=== PATIENT | female | born 1955 | race Caucasian/White ===

== ENCOUNTER → 2016-08-20 | Outpatient (CLI) | payer BC ==
[~2016-08-20] MED LIST: ATEN50TA8 PO; ATOR-22 PO; ERGO1CAP35 PO; ESCI1TAB10 PO; GLC/500 PO; LORA-741 PO; [UNRECOGNIZED DRUG - CODE] PO
== END | disposition home or self-care (01) ==
LOC: C.RDSM 07:30
PROVIDERS: ATTEND Physical Medicine & Rehabilitation Sports Medicine
DX: M17.11 Unilateral primary osteoarthritis, right knee (principal)

== ENCOUNTER → 2016-09-24 | Outpatient (CLI) | payer BC ==
--- NOTE | 2016-09-24 16:26 | MAMMOGRAPHY REPORT ---
BILATERAL DIGITAL SCREENING MAMMOGRAM TOMOSYNTHESIS WITH CAD: 09/24/2016 CLINICAL HISTORY: Routine screening. Patient has no complaints. TECHNIQUE: Breast tomosynthesis in addition to standard 2D mammography was performed. Current study was also evaluated with a Computer Aided Detection (CAD) system. COMPARISON: Comparison is made to exams dated: 09/21/2015 mammogram, 11/24/2013 mammogram, 09/03/2012 mammogram, 06/20/2010 mammogram, and 06/16/2009 mammogram - [facility]. BREAST COMPOSITION: The tissue of both breasts is heterogeneously dense, which may obscure small ma sses. FINDINGS: No suspicious masses, calcifications, or areas of architectural distortion are noted in e ither breast. There has been no significant interval change compared to prior exams. Scattered bilat eral benign-appearing calcifications are not significantly changed. IMPRESSION: ACR BI-RADS CATEGORY 2: BENIGN There is no mammographic evidence of malignancy. A 1 year screening mammogram is recommended. The p atient will receive written notification of the results. Approximately 10% of breast cancers are not detected with mammography. A negative mammographic repor t should not delay biopsy if a clinically suggestive mass is present. Cheyanne Jolly M.D. /:09/24/2016 14:22:01 Vessel Scrapper Helper: Fabiola Matamoros, [facility] letter sent: Normal 1/2 BI-RADS Code: ACR BI-RADS Category 2: Benign
== END | disposition home or self-care (01) ==
LOC: C.MAMM 13:28
PROVIDERS: ATTEND Obstetrics & Gynecology
DX: Z12.31 Encounter for screening mammogram for malignant neoplasm of breast (principal)

== ENCOUNTER → 2016-12-10 | Outpatient (CLI) | payer BC ==
[2016-12-10 09:42] LABS: BASO % 0.5 %; BASO ABS # 0.02 K/uL (0-0.2); COMPLETE YES; EOS % 2.9 %; HEMATOCRIT 39.5 % (37-47); IG% 0.3 %; LYMPH % 42.8 %; LYMPH ABS # 1.63 K/uL (1.2-3.4); MEAN CELL VOLUME 87.4 fL (80-100); MEAN CORPUSCULAR HEMOGLOBIN 30.1 pg (25-34); MEAN CORPUSCULAR HGB CONC 34.4 g/dl (32-36); MONO % 8.7 %; NEUT % 44.8 %; PLATELET COUNT 255 K/uL (130-400); RED BLOOD COUNT 4.52 M/uL (4.2-5.4); WHITE BLOOD COUNT 3.81 K/uL (4.8-10.8)
[2016-12-10 10:01] LABS: ALT/SGPT 39 U/L (12-78); AST/SGOT 28 U/L (15-37); BLOOD UREA NITROGEN 8 mg/dl (7-18); BUN/CREATININE RATIO 14.8 (10-20); CALCIUM 9.5 mg/dl (8.5-10.1); CARBON DIOXIDE 27 mmol/L (21-32); CHLORIDE 100 mmol/L (98-107); CHOLESTEROL 147 mg/dl (0-200); CREATININE 0.56 mg/dl (0.60-1.20); GLUCOSE 84 mg/dl (70-99); POTASSIUM 4.1 mmol/L (3.5-5.1); SODIUM 135 mmol/L (136-145); TRIGLYCERIDES 57 mg/dl (0-150); VERY LOW DENSITY LIPOPROT CALC 11 mg/dl
[2016-12-10 10:02] LABS: ALB/GLOB RATIO 1.5 (0.9-2); ALKALINE PHOSPHATASE 74 U/L (45-117); CHOLESTEROL/HDL RATIO 2.4; HDL CHOLESTEROL 62 mg/dl; LDL CHOLESTEROL CALCULATED 74 mg/dl
== END | disposition home or self-care (01) ==
LOC: C.LAB1850 08:17
PROVIDERS: ATTEND Nurse Practitioner Family
DX: M85.80 Other specified disorders of bone density and structure, unspecified site (principal); E78.5 Hyperlipidemia, unspecified; E55.9 Vitamin D deficiency, unspecified; I10 Essential (primary) hypertension

== ENCOUNTER → 2017-06-19 | Outpatient (CLI) | payer BC ==
--- NOTE | 2017-06-19 15:52 | DIAGNOSTIC IMAGING REPORT ---
CHEST 2 VIEWS ROUTINE CLINICAL HISTORY: R05 Cough dyspnea COMPARISON STUDY: No previous studies for comparison. FINDINGS: The bones soft tissues and hemidiaphragms are normal. The cardiomediastinal silhouette is normal. The lungs are clear. The pulmonary vasculature is normal. IMPRESSION: Negative chest. The above report was generated using voice recognition software. It may contain grammatical, syntax or spelling errors. Electronically signed by: Kee Colunga M.D. 06/19/2017 3:51 PM Dictated Date/Time: 06/19/2017 3:50 PM
== END | disposition home or self-care (01) ==
LOC: C.RAD 15:28
PROVIDERS: ATTEND Nurse Practitioner Family
DX: R05 Cough (principal)

== ENCOUNTER → 2017-09-19 | Outpatient (CLI) | payer OTHER | END | disposition home or self-care (01) | LOC: C.PAPS 12:34 | PROVIDERS: ATTEND Physician Assistant | DX: Z01.419 Encounter for gynecological examination (general) (routine) without abnormal findings (principal); Z11.51 Encounter for screening for human papillomavirus (HPV); Z78.0 Asymptomatic menopausal state ==

== ENCOUNTER → 2017-10-14 | Outpatient (CLI) | payer OTHER ==
--- NOTE | 2017-10-14 15:40 | MAMMOGRAPHY REPORT ---
BILATERAL DIGITAL SCREENING MAMMOGRAM TOMOSYNTHESIS WITH CAD: 10/14/2017 CLINICAL HISTORY: Routine screening. TECHNIQUE: Breast tomosynthesis in addition to standard 2D mammography was performed. Current study was also evaluated with a Computer Aided Detection (CAD) system. COMPARISON: Comparison is made to exams dated: 09/24/2016 mammogram, 09/21/2015 mammogram, 11/24/2013 m ammogram, 09/03/2012 mammogram, 06/28/2011 mammogram, and 06/20/2010 mammogram - [facility]. BREAST COMPOSITION: The tissue of both breasts is heterogeneously dense, which may obscure small mas ses. FINDINGS: There are possible faint grouped microcalcifications in the upper outer middle one third o f the right breast for which additional spot magnification views are recommended. A small, 5 mm nodu lar asymmetry in the lateral posterior left breast on the CC view partially effaces on the tomosynthe sis images and could represent normal overlapping tissue although additional spot compression tomosyn thesis views and possible ultrasound are recommended. There are a few other scattered rounded coarse calcifications in the breasts. No other suspicious ma ss, architectural distortion or cluster of microcalcifications is seen. IMPRESSION: ACR BI-RADS CATEGORY 0: INCOMPLETE EVALUATION: NEED ADDITIONAL IMAGING EVALUATION The possible faint grouped microcalcifications in the right upper outer breast and 5 mm nodular asymm etry in the lateral, posterior left breast need additional imaging evaluation. The patient will be called to schedule an appointment. Approximately 10% of breast cancers are not detected with mammography. A negative mammographic report should not delay biopsy if a clinically suggestive mass is present. Analy Sorto M.D. ay/:10/14/2017 07:53:47 Desktop Support Manager: Jeronimo MARCOS(Masoud)(M), [facility] letter sent: Addl Imaging 0 BI-RADS Code: ACR BI-RADS Category 0: Incomplete Evaluation: Need Additional Imaging Evaluation
== END | disposition home or self-care (01) ==
LOC: C.MAMM 07:19
PROVIDERS: ATTEND Nurse Practitioner Family
DX: Z12.31 Encounter for screening mammogram for malignant neoplasm of breast (principal); R92.0 Mammographic microcalcification found on diagnostic imaging of breast

== ENCOUNTER → 2017-10-17 | Outpatient (CLI) | payer OTHER | END | disposition home or self-care (01) | LOC: C.PATHSPEC 14:13 | PROVIDERS: ATTEND Obstetrics & Gynecology | DX: N90.4 Leukoplakia of vulva (principal) ==

== ENCOUNTER → 2017-11-04 | Outpatient (CLI) | payer OTHER ==
--- NOTE | 2017-11-05 13:04 | MAMMOGRAPHY REPORT ---
BILATERAL DIGITAL DIAGNOSTIC MAMMOGRAM TOMOSYNTHESIS AND TARGETED RIGHT ULTRASOUND: 11/04/2017 CLINICAL HISTORY: 62-year-old woman called back from screening mammography for a 5 mm nodular asymmet ry in the lateral, posterior left breast and possible faint microcalcifications in the right breast. TECHNIQUE: Spot magnification right CC, ML; spot compression tomosynthesis left CC and MLO views were obtained. COMPARISON: Comparison is made to exams dated: 10/14/2017 mammogram, 09/24/2016 mammogram, 09/21/2015 ma mmogram, 11/24/2013 mammogram, 09/10/2012 mammogram, and 09/03/2012 mammogram - [facility]. BREAST COMPOSITION: The tissue of both breasts is heterogeneously dense, which may obscure small mas ses. FINDINGS: The spot compression tomosynthesis views of the left breast demonstrate effacement of the nodular asymmetry in the lateral, posterior aspect of the breast. There is no definite persistent ma ss, focal area of architectural distortion or asymmetry identified on the CC or MLO views. Neverthel ess, given the conspicuous nature on screening mammography, further evaluation with ultrasound was pe rformed. Spot magnification views of the right breast demonstrate 2 benign rim calcifications. There is a pos sible 2 mm grouping of faint punctate and amorphous microcalcifications in the lateral, middle one th ird of the breast in the CC projection. However, when assessing the spot magnification ML view there are possible multiple clusters of faint punctate and amorphous microcalcifications suggesting the ca lcifications represent benign fibrocystic change. Also, when comparing back to prior available mammo grams, these microcalcifications were likely present dating back to at least 2012, therefore likely b enign. Targeted ultrasound was performed in the lateral and superior left breast. In the 3:00 left breast, 3 cm from the nipple, there is a subtle isoechoic solid-appearing, partially circumscribed mass, jamila uring 4.9 x 4.5 x 6.1 mm. This is likely incidentally identified but given the solid nature it is in determinate and definitive characterization with an ultrasound-guided core biopsy is recommended. No other discrete solid or cystic mass identified in the superior or lateral left breast. IMPRESSION: ACR BI-RADS CATEGORY 4: SUSPICIOUS, TARGETED ULTRASOUND ACR BI-RADS CATEGORY 4: SUSPICIO US 1. Left breast ultrasound-guided core biopsy is recommended for an incidentally identified indetermi casandra 6 mm isoechoic mass in the 3:00 axis, 3 cm from the nipple. 2. Pending benign pathology results from the left breast biopsy, follow-up right diagnostic mammogra ms including spot magnification views and follow-up left diagnostic mammograms including tomosynthesi s images are recommended for probably benign faint punctate microcalcifications in the right lateral breast and and effacing nodular asymmetry without definite sonographic correlate in the lateral, post erior left breast. These results and recommendations were discussed with the patient at the time of the exam. She tenta tively scheduled a left breast biopsy and six-month follow-up appointment prior to leaving our depart ment. Approximately 10% of breast cancers are not detected with mammography. A negative mammographic report should not delay biopsy if a clinically suggestive mass is present. Analy Sorto M.D. ay/:11/04/2017 14:11:36 Alemite Operator: Francisca LOVE)(Sadia), [facility] letter sent: Abnormal 4/5 BI-RADS Code: ACR BI-RADS Category 4: Suspicious Ultrasound BI-RADS: ACR BI-RADS Category 4: Suspici ous
== END | disposition home or self-care (01) ==
LOC: C.MAMM 09:29
PROVIDERS: ATTEND Nurse Practitioner Family
DX: R92.0 Mammographic microcalcification found on diagnostic imaging of breast (principal); N64.89 Other specified disorders of breast

== ENCOUNTER → 2017-11-14 | Outpatient (CLI) | payer OTHER ==
--- NOTE | 2017-11-14 11:03 | Discharge Instructions ---
Discharge Instructions Procedure Procedure Date: Nov 14, 2017. Reason for visit: Left Mass. Discharge Discharge Date: Nov 14, 2017. Discharge Diagnosis: status post breast biopsy Instructions Activity Recommendations: Additional Limitations (see below) Return to School/Work: no limitations Recommended Home Diet: No Limitations Provider Instructions: ACTIVITY RECOMMENDATIONS: * No lifting, pushing, pulling or exercising the affected side for three days. RETURN TO SCHOOL/WORK: * You may return to work/school after the procedure, but do not perform any strenuous activities for 24 to 48 hours. MEDICATIONS: * Tylenol (two 325 mg) every four to six hours if needed for mild pain (if not allergic to Tylenol). DIET: * Resume previous diet. SPECIAL CARE INSTRUCTIONS: * Keep biopsy site dry for 24 hours. May shower after 24 hours, but do not soak (bathe) incision. * May remove Tegaderm (plastic patch) tomorrow AFTER showering. * Leave the steri-strips on for one week. Allow the steri-strips to fall off by themselves. If not off after one week, you may remove them. You may place a Bandaid crosswise over the strips, if desired. * Apply ice 10 minutes on and 10 minutes off as needed. * Wear a bra at bedtime to sleep more comfortably for 2-3 days. * Your referring physician should have the results after approximately 5 to 7 business days. * Call for unusual bleeding, fever, drainage, etc or if you have any questions call during normal business hours or after hours call Dr Jolly, [phone]. FOLLOW UP VISIT: Follow-up with Referring Physician as scheduled. Allergies Coded Allergies: Pravastatin (Unverified Allergy, Intermediate, RASH, 01/13/14) Yodit Pisanoy Recommendations: Call your doctor if: * Temperature above 101 degrees * Pain not relieved by pain medicine ordered * There is increased drainage or redness from any incision * You have any unanswered questions or concerns. Your Doctors Instructions noted above were prepared by provider Cheyanne Jolly. Patient Signature Section: Patient Instructions Signature Page Lorena Bradshaw Patient (or Guardian) Signature/Date: I have read and understand the instructions given to me by my caregivers. Caregiver/RN/Doctor Signature/Date: The above-named patient and/or guardian has received patient instructions on this date. + Original Patient Signature Page (only) stays with chart. Please make copy for patient.
--- NOTE | 2017-11-14 14:44 | MAMMOGRAPHY REPORT ---
ULTRASOUND GUIDED BIOPSY LEFT BREAST: 11/14/2017 CLINICAL HISTORY: Left 3:00 breast mass. PATIENT CONSENT: The procedure, risks and benefits were discussed with the patient and informed writt en consent was obtained. A timeout was performed immediately prior to the procedure. PROCEDURE DESCRIPTION: With ultrasound guidance, aseptic technique, and lidocaine as the local anesth etic (1% lidocaine to anesthetize the skin and 1% lidocaine with epinephrine to anesthetize the deepe r tissues), the mass of concern in the left 3:00 breast was sampled 4 times with a 14-gauge Achieve b iopsy needle. Immediately thereafter, with ultrasound guidance, aseptic technique, and lidocaine as the local anesthetic, a metallic localizer clip was placed centrally in the mass. Direct pressure wa s applied to the site immediately post procedure and hemostasis was achieved. Postprocedure unilater al mammograms were performed to confirm placement of the clip in the expected location of the breast mass. The patient tolerated the procedure without complication. She was given wound care instructio ns. The specimens were sent to pathology for analysis. COMPARISON: Comparison is made to exams dated: 11/04/2017 mammogram, 11/04/2017 ultrasound, 10/14/2017 m ammogram, 09/24/2016 mammogram, 09/21/2015 mammogram, and 11/24/2013 mammogram - [facility] enter. IMPRESSION: ULTRASOUND GUIDED BIOPSY Ultrasound-guided core needle biopsy of the left 3:00 breast mass, with clip placement. The patient will receive pathology results from her referring provider. Pending benign pathology results, recomm end follow-up bilateral diagnostic mammograms in 6 months to reevaluate other bilateral breast findin gs as described on the prior diagnostic report. Cheyanne Jolly M.D. /:11/14/2017 11:05:52 Actuarial Consultant: Fabiola MARCOS(R)(M), [facility]
--- NOTE | 2017-11-14 14:44 | MAMMOGRAPHY REPORT ---
UNILATERAL LEFT DIGITAL DIAGNOSTIC MAMMOGRAM TOMOSYNTHESIS: 11/14/2017 CLINICAL HISTORY: Status post left breast biopsy. TECHNIQUE: Breast tomosynthesis in addition to standard 2D mammography was performed. Postprocedura l left CC and ML tomosynthesis images were obtained. COMPARISON: Comparison is made to exams dated: 11/04/2017 ultrasound, 10/14/2017 mammogram, 09/24/2016 m ammogram, 09/21/2015 mammogram, and 11/24/2013 mammogram - [facility]. BREAST COMPOSITION: The tissue of the left breast is heterogeneously dense, which may obscure small masses. FINDINGS: A new ribbon-shaped biopsy marker clip is seen in the expected location of the biopsied lef t 3:00 breast mass. No significant postbiopsy hematoma is seen. IMPRESSION: POST PROCEDURE IMAGING FOR MARKER PLACEMENT New biopsy marker clip status post left breast biopsy. Pathology results are pending. Approximately 10% of breast cancers are not detected with mammography. A negative mammographic report should not delay biopsy if a clinically suggestive mass is present. Cheyanne Jolly M.D. ah/:11/14/2017 11:14:20 Community Arts Worker: Fabiola Resendzi RT(R)(M), [facility] BI-RADS Code: Post Procedure Imaging For Marker Placement
== END | disposition home or self-care (01) ==
LOC: C.MAMM 10:36
PROVIDERS: ATTEND Nurse Practitioner Family
DX: R92.8 Other abnormal and inconclusive findings on diagnostic imaging of breast (principal); N63.20 Unspecified lump in the left breast, unspecified quadrant; D24.2 Benign neoplasm of left breast

== ENCOUNTER → 2017-12-17 | Outpatient (CLI) | payer OTHER ==
[2017-12-17 10:15] LABS: BASO % 1.1 %; BASO ABS # 0.05 K/uL (0-0.2); EOS % 6.2 %; EOS ABS # 0.28 K/uL (0-0.5); HEMATOCRIT 38.8 % (37-47); IG# 0.01 K/uL (0.00-0.02); LYMPH % 37.8 %; LYMPH ABS # 1.71 K/uL (1.2-3.4); MEAN CELL VOLUME 87.4 fL (80-100); MEAN CORPUSCULAR HEMOGLOBIN 29.3 pg (25-34); MEAN CORPUSCULAR HGB CONC 33.5 g/dl (32-36); MEAN PLATELET VOLUME 9.2 fL (7.4-10.4); MONO % 9.3 %; MONO ABS # 0.42 K/uL (0.11-0.59); NEUT % 45.4 %; NEUT ABS # 2.05 K/uL (1.4-6.5); PLATELET COUNT 276 K/uL (130-400); RED CELL DISTRIBUTION WIDTH CV 12.8 % (11.5-14.5); RED CELL DISTRIBUTION WIDTH SD 41.5 fL (36.4-46.3); WHITE BLOOD COUNT 4.52 K/uL (4.8-10.8)
[2017-12-17 10:32] LABS: ALBUMIN 3.8 gm/dl (3.4-5.0); ALT/SGPT 41 U/L (12-78); AST/SGOT 26 U/L (15-37); BLOOD UREA NITROGEN 11 mg/dl (7-18); CALCIUM 8.8 mg/dl (8.5-10.1); CARBON DIOXIDE 30 mmol/L (21-32); CHOLESTEROL 157 mg/dl (0-200); CREATININE 0.59 mg/dl (0.60-1.20); GLUCOSE 91 mg/dl (70-99); POTASSIUM 4.3 mmol/L (3.5-5.1); SODIUM 136 mmol/L (136-145)
[2017-12-17 10:33] LABS: ALKALINE PHOSPHATASE 77 U/L (45-117); LDL CHOLESTEROL CALCULATED 83 mg/dl
== END | disposition home or self-care (01) ==
LOC: C.LAB1850 09:01
PROVIDERS: ATTEND Nurse Practitioner Family
DX: E78.5 Hyperlipidemia, unspecified (principal); E88.9 Metabolic disorder, unspecified; I10 Essential (primary) hypertension; E55.9 Vitamin D deficiency, unspecified

== ENCOUNTER 2022-10-02 09:40 | Inpatient (IN) ==
--- NOTE | 2022-10-02 10:46 | XRay Report ---
XR chest 1V portable HISTORY: Chest pain, nonspecific COMPARISON: None. FINDINGS: The cardiac silhouette is mildly enlarged. There are trace bilateral pleural effusions. The re is diffuse interstitial/vascular thickening consistent with mild pulmonary edema. No focal lung co nsolidations identified. IMPRESSION: Cardiomegaly with mild interstitial pulmonary edema and trace bilateral pleural effusions. ACT 112: Negative or not required by law. Electronically signed by: Guero Peralta M.D. 10/02/2022 10:44 AM
[2022-10-02] MEDS ORDERED: FUROSEMIDE 40 MG/4 ML VIAL IV ONE (11:09)
[2022-10-02] MEDS ORDERED: hydrALAZINE HCL 20 MG/ML VIAL IV ONE (11:14)
[2022-10-02 11:20] LABS: Basophils # (auto) 0.04 K/uL (0-0.2); Basophils % (auto) 0.6 %; Eosinophils # (auto) 0.08 K/uL (0-0.50); Eosinophils % (auto) 1.3 %; Hematocrit (blood only) 32.4 % (37.0-47.0); Hemoglobin 10.9 g/dl (12.0-16.0); Immature Granulocytes # (auto) 0.02 K/uL (0.01-0.20); Immature Granulocytes % (auto) 0.3 %; Lymphocytes # (auto) 1.23 K/uL (1.2-3.4); Lymphocytes % (auto) 19.4 %; Mean Corpuscular Hemoglobin 29.1 pg (25.0-34.0); Mean Corpuscular Hgb Conc 33.6 g/dL (32.0-36.0); Mean Corpuscular Volume 86.6 fL (80.0-100.0); Mean Platelet Volume 9.6 fL (9.4-12.4); Monocytes # (auto) 0.61 K/uL (0.11-0.59); Monocytes % (auto) 9.6 %; Neutrophils # (auto) 4.35 K/uL (1.40-6.50); Neutrophils % (auto) 68.8 %; Platelet Count 270 K/uL (130-400); RDW Coefficient of Variation 13.2 % (11.5-14.5); RDW Standard Deviation 41.5 fL (36.4-46.3); Red Blood Count 3.74 M/uL (4.20-5.40); White Blood Count 6.33 K/ul (4.8-10.8)
[2022-10-02 11:39] LABS: Albumin Globulin Ratio 1.4 (0.9-2); Albumin Level 3.8 gm/dl (3.4-5.0); Bilirubin,Total 1.2 mg/dl (0.2-1.0); Creatinine Clr Calc Pharmacy 108.1 ml/min; Est GFR (African American) 115.3 ml/min; Est GFR (Non-African American) 99.4 ml/min; Globulin 2.7 gm/dl (2.5-4.0); Potassium 3.6 mmol/L (3.5-5.1); Total Protein 6.5 gm/dl (6.0-8.3)
[2022-10-02 11:45] LABS: Troponin I High Sensitivity 23.1 pg/ml (0-14)
--- NOTE | 2022-10-02 13:41 | History & Physical Report ---
Date of Service October 02, 2022 Assessment & Plan (1) Hypertensive emergency: Plan: Presented to the ER after evaluation at her PCP office with blood pressures in the [id number] systolic, with complaints of headache and exertional chest pain/dyspnea x1 week. High-sensitivity troponin of 20, EKG without any obvious ST or T wave abnormalities suggestive of ACS. Chest pain resolved by time of my interview. Continue to monitor with every 6 hours troponins and stress test in the morning. Will give amlodipine 5 mg p.o. x1 now, and continue amlodipine 5 mg daily starting tomorrow. No neurologic findings on time of interview that would suggest need for brain imaging. Lopressor 5mg IV q6h as needed for SBP >180. (2) Chest pain: Plan: In the setting of severe hypertension, and patient does have several risk factors for CAD. Stress test tomorrow as above. Trend troponins every 6 hours. No evidence of ACS. Continue daily baby aspirin. (3) Shortness of breath: Plan: On exertion over the last week or so, with chest x-ray suggesting mild pulmonary edema and small bilateral pleural effusions. Symptoms resolved after receiving Lasix 40 mg IV x1 in the ER. Cardiac evaluation as described above. (4) Pulmonary edema: Plan: See shortness of breath. (5) Transaminitis: Plan: Noted on admission labwork to have elevated T Bili to 1.2 with mildly elevated AST/ALT/Alk Phos. Patient denies RUQ pain. RUQ US ordered given acute transaminitis (last labwork normal 5 days ago). (6) Hyperlipidemia: Plan: History of, on atorvastatin 20 mg daily. Lipid panel ordered. (7) Prediabetes: Plan: A1c 5.9% in March 2022. Patient takes metformin 500mg BID. Repeat A1c ordered. (8) Depression: Plan: Continue home Lexapro. Plan Heparin SQ BID for DVT ppx FULL CODE Heart healthy diet History of Present Illness Chief Complaint: Exertional chest pain and shortness of breath, elevated LFTs Primary Care Provider: Meño Lawson, III, GLASS BLOWING LATHE OPERATOR 67-year-old female past medical history significant for hypertension, hyperlipidemia, depression, prediabetes presented to the ER via personal vehicle at the urging of her primary care provider after her wellness visit today. During that visit she endorsed exertional chest heaviness and associated shortness of breath (example that she gives was when she went to [employer] over the weekend walking up the steps made her very winded and with a bit of a pressure sensation over her chest, improved upon sitting at [employer] and did not have for the rest of the day), though she does endorse that symptoms are sometimes present at rest, though not as severe. She also endorses a severe headache for the last week, which she thought was due to needing new glasses. She denies recent fevers, nausea, lightheadedness. She does not endorse any abdominal pain, and denies any improvement or worsening of the pressure/pain sensation with eating. In the ER patient was noted to have a hemoglobin of 10.9, normal WBC count, normal BMP, elevated LFTs and T. bili compared to lab work on 09/27/2022, and elevated troponin to 23.1. COVID-19 negative. Chest x-ray with some evidence of mild interstitial pulmonary edema and trace bilateral pleural effusions. EKG with T wave inversions in leads V1 and V2, otherwise no ST or T wave changes. Patient was given hydralazine 5 mg IV and furosemide 40 mg IV, and gallbladder ultrasound was ordered. Hospitalist service was consulted for possible unstable angina, hypertensive urgency, and further evaluation of transaminitis. Allergies Allergy/AdvReac Type Severity Reaction Status Date / Time pravastatin Allergy Intermediate RASH Verified 10/02/22 08:43 Home Medications Medication Instructions Recorded Confirmed Type calcium carbonate 600 mg calcium 600 mg PO DAILY 09/23/19 10/02/22 History (1,500 mg) tablet cholecalciferol (vitamin D3) 50 50 mcg PO DAILY 09/23/19 10/02/22 History mcg (2,000 unit) tablet mecobalamin (vitamin B12) 1,000 1,000 mcg PO DIRECTED 09/23/19 10/02/22 History mcg chewable tablet clotrimazole-betamethasone 1 1 applic topical BID PRN Skin 09/28/21 10/02/22 History %-0.05 % topical cream Irritation atorvastatin 20 mg tablet 20 mg PO DAILY #90 tabs 04/13/22 10/02/22 Rx losartan 25 mg tablet 25 mg PO BID #180 tabs 06/07/22 10/02/22 Rx atenolol 50 mg tablet 50 mg PO DAILY #90 tabs 08/27/22 10/02/22 Rx escitalopram oxalate 20 mg tablet 20 mg PO DAILY #90 tabs 08/27/22 10/02/22 Rx metformin 500 mg tablet 500 mg PO BID #180 tabs 09/10/22 10/02/22 Rx aspirin 81 mg tablet,delayed 81 mg PO DAILY 10/02/22 10/02/22 History release (Adult Low Dose Aspirin) Past Med/Surg History Medical History Benign essential hypertension Depression Hyperlipidemia Metabolic disorder Osteopenia after menopause Prediabetes Vitamin D deficiency Surgical History History of breast biopsy History of colonoscopy S/P appendectomy S/P excision of ganglion cyst Family History Mother Breast cancer Diabetes Dementia Macular degeneration Hyperlipidemia Hypertension Father Myocardial infarction Prostate cancer Coronary heart disease Hypertension Grandfather (Maternal) Colon cancer Denies family history of Ovarian cancer Social History Smoking Status: Never smoker Second Hand Exposure: No; Hx Alcohol Use: Yes Alcohol type: wine Alcohol Intake Frequency: Monthly or Less Hx Substance Use: No Preferred Language: Chinese Communication Ability: Effective Visual Impairment: No Limitations Hearing Ability: Normal Assisted Living Coordinator Required: No marital status: Single Current Living Situation: Alone current occupational status: retired Feels Safe at Home: Yes Childhood Exposure to Second-Hand Smoke: No Diet Comment: regular Dental Care, Regularly: Yes Physical Activity Frequency: Daily Seatbelt Use: always Sunscreen Use: Yes Assistive Devices: Glasses Review of Systems Review of Systems: All systems reviewed & are unremarkable except as noted in Subjective Physical Exam Constitutional: WD/WN, vitals as above Respiratory: normal respiratory effort, lungs clear to auscultation Cardiovascular: RRR, no murmur, no edema Gastrointestinal (Abdomen): normal bowel sounds, soft, nontender, no hepatosplenomegaly Skin: no rashes, warm and dry Psychiatric: A+Ox3, euthymic affect Results & Data Results & Data ([facility]) Vital Signs (Past 12 Hours) Vital Signs Temp Pulse Resp BP Pulse Ox O2 Del Method 10/02/22 13:22 68 26 H 96 10/02/22 13:10 59 L 17 96 10/02/22 13:00 57 L 21 10/02/22 13:00 194/87 H 10/02/22 12:40 59 L 21 96 10/02/22 12:37 57 L 18 10/02/22 12:37 180/87 H 10/02/22 12:20 58 L 17 95 10/02/22 12:00 66 28 H 95 10/02/22 12:00 195/85 H 10/02/22 11:50 60 21 97 10/02/22 11:40 60 22 96 10/02/22 11:30 57 L 20 10/02/22 11:30 174/88 H 10/02/22 11:20 57 L 21 95 10/02/22 11:10 59 L 20 98 10/02/22 11:00 56 L 17 10/02/22 11:00 176/89 H 10/02/22 10:50 55 L 16 97 10/02/22 10:30 58 L 22 188/93 H 96 Room Air 10/02/22 10:08 61 10/02/22 09:44 36.4 C L 84 18 198/94 H 91 Room Air PG Care Time/CCT Total # of Minutes Spent Total Time Spent with Patient: Total time spent is greater than 50% in coordination of care (as documented) at patient's floor/unit and/or counseling patient: Coding Level of Care Code 71936 INT INP/OBS CARE 3/75MIN Diagnoses Hypertensive emergency I16.1 Chest pain R07.9 Shortness of breath R06.02 Pulmonary edema J81.1 Transaminitis R74.01 Hyperlipidemia E78.5 Prediabetes R73.03 Depression F32.9
--- NOTE | 2022-10-02 13:58 | Electrocardiogram Report ---
Test Reason : Blood Pressure : / mmHG Vent. Rate : 062 BPM Atrial Rate : 062 BPM P-R Int : 128 ms QRS Dur : 084 ms QT Int : 414 ms P-R-T Axes : 013 024 021 degrees QTc Int : 420 ms Normal sinus rhythm Normal ECG No previous ECGs available Confirmed by Jose Manuel Juárez ([id number]) on 10/02/2022 1:58:16 PM Referred By: Meño Lawson Confirmed By:Antonio Juárez
[2022-10-02] MEDS ORDERED: amLODIPine BESYLATE 5 MG TAB PO ONE (14:09)
[2022-10-02] MEDS ORDERED: METOPROLOL TARTRATE 1 MG/ML VIAL IV PRN (14:24)
--- NOTE | 2022-10-02 14:51 | Ultrasound Report ---
ABDOMINAL ULTRASOUND, RIGHT UPPER QUADRANT HISTORY: elevated LFT. COMPARISON: Abdominal ultrasound 10/26/2009. FINDINGS: Pancreas: Obscured by overlying bowel gas. Liver: Unremarkable. The main portal vein is patent. Gallbladder: No gallbladder wall thickening. No gallstones. CBD: 3 mm. Right kidney: No hydronephrosis. IMPRESSION: 1. Normal liver and gallbladder. 2. The pancreas was obscured by overlying bowel gas. ACT 112: Negative or not required by law. Electronically signed by: Guero Peralta M.D. 10/02/2022 2:50 PM
--- NOTE | 2022-10-02 15:17 | Emergency Department Note ---
Impression & Plan Pulmonary edema, Chest pain, Transaminitis ED Provider Note CHIEF COMPLAINT: Chest pain, shortness of breath HISTORY OF PRESENT ILLNESS: This 67-year-old female patient presents to the emergency department with complaints of chest pain and shortness of breath for the last 2 days. Patient states she experienced fatigue and chest pressure when climbing the basement stairs doing laundry yesterday. She does feel winded when exerting herself. Patient denies any radiation of the pain to the jaw, arm and back. The patient had an appointment with her PCP today for a wellness checkup and was noted to have markedly elevated blood pressure, referred to the emergency department for evaluation. She did take her medications this morning. She denies any history of coronary artery disease. She denies any upper respiratory symptoms recently. REVIEW OF SYSTEMS: A review of systems was performed with positives and pertinent negatives listed in the history of present illness. 10 systems were reviewed and are otherwise negative. ALLERGIES: see below MEDICATIONS: see below PMH: see below SOCIAL HISTORY: see below DDx: Cardiac ischemia, aortic dissection, pulmonary embolism, pneumothorax, pneumonia, pericarditis, myocarditis, esophageal rupture, GERD, cholecystitis, pancreatitis, musculoskeletal, as well as other pathologies. PHYSICAL EXAM: Vital signs reviewed. General: Well-appearing 67-year-old female, in no significant distress. HEENT: No scleral icterus, PERRLA, neck supple. Moist mucous membranes Cardiovascular: Regular rate and rhythm, no extra sounds. Pulmonary: Clear to auscultation bilaterally, normal work of breathing. Abdomen: Soft, nontender, nondistended, positive bowel sounds. Musculoskeletal: Atraumatic, no peripheral edema. Neurologic: Patient awake alert and oriented x 3, speech is clear Skin: Warm, dry, no rash EMERGENCY DEPARTMENT COURSE/MDM: This patient was evaluated and appeared to be in no significant distress. IV access was obtained and laboratory work was drawn. The patient was placed on the engine monitor and noted to be in a normal sinus rhythm. EKG reveals no evidence of acute ischemia. Chest x-ray reveals evidence of pulmonary vascular congestion. Patient's HS troponin is just above normal at 23. Patient is noted to have a mild transaminitis and ultrasound of the right upper quadrant was performed. The study is negative for acute process. The patient was given 40 mg of IV Lasix and 5 mg of IV hydralazine. She did take aspirin prior to arrival. Patient had significant subjective improvement after she began to diurese. Given that this is a new diagnosis for the patient and she is experiencing chest discomfort/shortness of breath with exertion, patient was discussed with the hospitalist service for ad mission and further management. She is expressed understanding of the plan and agreed. MONITORING: An order for cardiac monitoring was placed and the patient is noted to be in a sinus bradycardia at 58 beats per minute. RADIOLOGY: Chest x-ray to my interpretation reveals evidence of pulmonary vas cular congestion, otherwise defer to radiology. Ultrasound of the gallbladder per radiology reveals normal gallbladder and liver. Pancreas is obscured by bowel gas. Please see formal read below. EKG: EKG to my interpretation reveals sinus bradycardia at 55 bpm. QTc of 474. Normal ST segments. No PVC, no PAC. When compared to previous of same day, QTc has lengthened. DISPOSITION: Admission Past Med/Surg History Medical History Benign essential hypertension Depression Hyperlipidemia Metabolic disorder Osteopenia after menopause Prediabetes Vitamin D deficiency Surgical History History of breast biopsy History of colonoscopy S/P appendectomy S/P excision of ganglion cyst Family History Mother Breast cancer Diabetes Dementia Macular degeneration Hyperlipidemia Hypertension Father Myocardial infarction Prostate cancer Coronary heart disease Hypertension Grandfather (Maternal) Colon cancer Denies family history of Ovarian cancer Social History Smoking Status: Never smoker Second Hand Exposure: No; Hx Alcohol Use: Yes Alcohol type: wine Alcohol Intake Frequency: Monthly or Less Hx Substance Use: No Preferred Language: Greenlandic Communication Ability: Effective Visual Impairment: No Limitations 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 Beliefs That Will Affect Care: Holiness marital status: Single Current Living Situation: Alone current occupational status: retired Feels Safe at Home: Yes Childhood Exposure to Second-Hand Smoke: No Diet Comment: regular Dental Care, Regularly: Yes Physical Activity Frequency: Daily Seatbelt Use: always Sunscreen Use: Yes Assistive Devices: None Allergies Allergies Allergy/AdvReac Type Severity Reaction Status Date / Time pravastatin Allergy Intermediate RASH Verified 10/05/22 10:03 Home Meds Home Medications Medication Instructions Recorded Confirmed calcium carbonate 600 mg calcium 600 mg PO DAILY 09/23/19 10/05/22 (1,500 mg) tablet cholecalciferol (vitamin D3) 50 50 mcg PO DAILY 09/23/19 10/05/22 mcg (2,000 unit) tablet mecobalamin (vitamin B12) 1,000 1,000 mcg PO DIRECTED 09/23/19 10/05/22 mcg chewable tablet clotrimazole-betamethasone 1 1 applic topical BID PRN Skin 09/28/21 10/05/22 %-0.05 % topical cream Irritation aspirin 81 mg tablet,delayed 81 mg PO DAILY 10/02/22 10/05/22 release (Adult Low Dose Aspirin) Previous Rx's Medication Instructions Recorded atorvastatin 20 mg tablet 20 mg PO DAILY #90 tabs 04/13/22 losartan 25 mg tablet 25 mg PO BID #180 tabs 06/07/22 atenolol 50 mg tablet 50 mg PO DAILY #90 tabs 08/27/22 escitalopram oxalate 20 mg tablet 20 mg PO DAILY #90 tabs 08/27/22 metformin 500 mg tablet 500 mg PO BID #180 tabs 09/10/22 amlodipine 10 mg tablet 10 mg PO DAILY #30 tabs 10/04/22 Results & Data (ED) Vital Signs Vital Signs - 24 hr 10/02/22 09:44 10/02/22 10:08 10/02/22 10:30 Temperature 36.4 C L Temperature Source Temporal Artery Scan Pulse Rate 84 61 58 L Pulse Rate from SpO2 Sensor Respiratory Rate 18 22 Blood Pressure 198/94 H 188/93 H Blood Pressure Mean 128 124 Blood Pressure Position Sitting Pulse Oximetry 91 96 Oxygen Delivery Method Room Air Room Air Sepsis Recent Fever Within 48 Hours No Sepsis New/Unexplained Change in Mental Status No Sepsis Action Taken by Nursing No Action Required 10/02/22 10:50 10/02/22 11:00 10/02/22 11:00 Temperature Temperature Source Pulse Rate 55 L 56 L Pulse Rate from SpO2 Sensor 56 L Respiratory Rate 16 17 Blood Pressure 176/89 H Blood Pressure Mean 118 Blood Pressure Position Pulse Oximetry 97 Oxygen Delivery Method Sepsis Recent Fever Within 48 Hours Sepsis New/Unexplained Change in Mental Status Sepsis Action Taken by Nursing 10/02/22 11:10 10/02/22 11:20 10/02/22 11:30 Temperature Temperature Source Pulse Rate 59 L 57 L Pulse Rate from SpO2 Sensor 58 L 58 L Respiratory Rate 20 21 Blood Pressure 174/88 H Blood Pressure Mean 116 Blood Pressure Position Pulse Oximetry 98 95 Oxygen Delivery Method Sepsis Recent Fever Within 48 Hours Sepsis New/Unexplained Change in Mental Status Sepsis Action Taken by Nursing 10/02/22 11:30 10/02/22 11:40 10/02/22 11:50 Temperature Temperature Source Pulse Rate 57 L 60 60 Pulse Rate from SpO2 Sensor 60 61 Respiratory Rate 20 22 21 Blood Pressure Blood Pressure Mean Blood Pressure Position Pulse Oximetry 96 97 Oxygen Delivery Method Sepsis Recent Fever Within 48 Hours Sepsis New/Unexplained Change in Mental Status Sepsis Action Taken by Nursing 10/02/22 12:00 10/02/22 12:00 10/02/22 12:20 Temperature Temperature Source Pulse Rate 66 58 L Pulse Rate from SpO2 Sensor 66 59 L Respiratory Rate 28 H 17 Blood Pressure 195/85 H Blood Pressure Mean 121 Blood Pressure Position Pulse Oximetry 95 95 Oxygen Delivery Method Sepsis Recent Fever Within 48 Hours Sepsis New/Unexplained Change in Mental Status Sepsis Action Taken by Nursing 10/02/22 12:37 10/02/22 12:37 10/02/22 12:40 Temperature Temperature Source Pulse Rate 57 L 59 L Pulse Rate from SpO2 Sensor 59 L Respiratory Rate 18 21 Blood Pressure 180/87 H Blood Pressure Mean 118 Blood Pressure Position Pulse Oximetry 96 Oxygen Delivery Method Sepsis Recent Fever Within 48 Hours Sepsis New/Unexplained Change in Mental Status Sepsis Action Taken by Nursing 10/02/22 13:00 10/02/22 13:00 10/02/22 13:10 Temperature Temperature Source Pulse Rate 57 L 59 L Pulse Rate from SpO2 Sensor 58 L Respiratory Rate 21 17 Blood Pressure 194/87 H Blood Pressure Mean 122 Blood Pressure Position Pulse Oximetry 96 Oxygen Delivery Method Sepsis Recent Fever Within 48 Hours Sepsis New/Unexplained Change in Mental Status Sepsis Action Taken by Nursing 10/02/22 13:22 Temperature Temperature Source Pulse Rate 68 Pulse Rate from SpO2 Sensor 68 Respiratory Rate 26 H Blood Pressure Blood Pressure Mean Blood Pressure Position Pulse Oximetry 96 Oxygen Delivery Method Sepsis Recent Fever Within 48 Hours Sepsis New/Unexplained Change in Mental Status Sepsis Action Taken by [facility] Medications Current Medication List: was personally reviewed by me Laboratory Data Attestation: I reviewed the patient's lab results. 10/02/22 10:04 10/02/22 10:04 Lab Results 02/10/02/22 10/02/22 Range/Units 10:02 10:04 10:04 WBC 6.33 (4.8-10.8) K/ul RBC 3.74 L (4.20-5.40) M/uL Hgb 10.9 L (12.0-16.0) g/dl Hct 32.4 L (37.0-47.0) % MCV 86.6 (80.0-100.0) fL MCH 29.1 (25.0-34.0) pg MCHC 33.6 (32.0-36.0) g/dL RDW Std Deviation 41.5 (36.4-46.3) fL RDW Coeff of Duran 13.2 (11.5-14.5) % Plt Count 270 (130-400) K/uL MPV 9.6 (9.4-12.4) fL Immature Gran % (Auto) 0.3 % Neut % (Auto) 68.8 % Lymph % (Auto) 19.4 % [place] % (Auto) 9.6 % Eos % (Auto) 1.3 % Baso % (Auto) 0.6 % Neut # (Auto) 4.35 (1.40-6.50) K/uL Lymph # (Auto) 1.23 (1.2-3.4) K/uL [place] # (Auto) 0.61 H (0.11-0.59) K/uL Eos # (Auto) 0.08 (0-0.50) K/uL Baso # (Auto) 0.04 (0-0.2) K/uL Immature Gran # (Auto) 0.02 (0.01-0.20) K/uL Sodium 137 (136-145) mmol/L Potassium 3.6 (3.5-5.1) mmol/L Chloride 102 (98-107) mmol/L Carbon Dioxide 28 (21-32) mmol/L Anion Gap 7 (3-11) BUN 9 (6-23) mg/dl Creatinine 0.50 L (0.6-1.2) mg/dl Est Cr Clr Drug Dosing 108.1 ml/min Est GFR ( Amer) 115.3 ml/min Est GFR (Non-Af Amer) 99.4 ml/min BUN/Creatinine Ratio 18.0 (10-20) Glucose 92 (70-99(Fasting)) mg/dl Estimat Average Glucose mg/dl Hemoglobin A1c (4.5-5.6) % Calcium 9.0 (8.5-10.1) mg/dl Total Bilirubin 1.2 H (0.2-1.0) mg/dl AST 42 H (13-39) U/L ALT 105 H (7-52) U/L Alkaline Phosphatase 128 H (34-104) U/L Troponin I High Sens 23.1 H (0-14) pg/ml Total Protein 6.5 (6.0-8.3) gm/dl Albumin 3.8 (3.4-5.0) gm/dl Globulin 2.7 (2.5-4.0) gm/dl Albumin/Globulin Ratio 1.4 (0.9-2) Lipase 21 (11-82) U/L TSH (0.300-4.500) uIu/ml SARS-CoV-2 (PCR) NEGATIVE (Negative) 10/02/22 10/02/22 10/02/22 Range/Units 10:04 10:04 12:28 WBC (4.8-10.8) K/ul RBC (4.20-5.40) M/uL Hgb (12.0-16.0) g/dl Hct (37.0-47.0) % MCV (80.0-100.0) fL MCH (25.0-34.0) pg MCHC (32.0-36.0) g/dL RDW Std Deviation (36.4-46.3) fL RDW Coeff of Duran (11.5-14.5) % Plt Count (130-400) K/uL MPV (9.4-12.4) fL Immature Gran % (Auto) % Neut % (Auto) % Lymph % (Auto) % [place] % (Auto) % Eos % (Auto) % Baso % (Auto) % Neut # (Auto) (1.40-6.50) K/uL Lymph # (Auto) (1.2-3.4) K/uL [place] # (Auto) (0.11-0.59) K/uL Eos # (Auto) (0-0.50) K/uL Baso # (Auto) (0-0.2) K/uL Immature Gran # (Auto) (0.01-0.20) K/uL Sodium (136-145) mmol/L Potassium (3.5-5.1) mmol/L Chloride (98-107) mmol/L Carbon Dioxide (21-32) mmol/L Anion Gap (3-11) BUN (6-23) mg/dl Creatinine (0.6-1.2) mg/dl Est Cr Clr Drug Dosing ml/min Est GFR ( Amer) ml/min Est GFR (Non-Af Amer) ml/min BUN/Creatinine Ratio (10-20) Glucose (70-99(Fasting)) mg/dl Estimat Average Glucose 126 mg/dl Hemoglobin A1c 6.0 H (4.5-5.6) % Calcium (8.5-10.1) mg/dl Total Bilirubin (0.2-1.0) mg/dl AST (13-39) U/L ALT (7-52) U/L Alkaline Phosphatase (34-104) U/L Troponin I High Sens 18.8 H D (0-14) pg/ml Total Protein (6.0-8.3) gm/dl Albumin (3.4-5.0) gm/dl Globulin (2.5-4.0) gm/dl Albumin/Globulin Ratio (0.9-2) Lipase (11-82) U/L TSH 2.821 (0.300-4.500) uIu/ml SARS-CoV-2 (PCR) (Negative) Administered Medications Discontinued Medications Acetaminophen (Acetaminophen 325 Mg Tab) 650 mg PO Q4H PRN PRN Reason: Pain or Fever Stop: 11/01/22 16:16 Last Admin: 10/03/22 13:03 Dose: 650 mg Documented By: Admin: 10/02/22 16:53 Dose: 650 mg Documented By: RAUL Amlodipine Besylate (Amlodipine Besylate 5 Mg Tab) 5 mg PO NOW ONE Stop: 10/02/22 14:10 Last Admin: 10/02/22 16:52 Dose: 5 mg Documented By: RAUL Amlodipine Besylate (Amlodipine Besylate 5 Mg Tab) [facility] [place] [place]: 11/02/22 08:59 Last Admin: 10/03/22 09:03 Dose: 5 mg Documented By: VJT Amlodipine Besylate (Amlodipine Besylate 5 Mg Tab) 10 mg PO QAM KEELEY Stop: 11/03/22 08:59 Last Admin: 10/04/22 10:47 Dose: 10 mg Documented By: AMY Aspirin (Aspirin 81 Mg Ectab) 81 mg PO DAILY KEELEY Stop: 11/02/22 08:59 Last Admin: 10/04/22 09:26 Dose: 81 mg Documented By: AGT Co-signed By: DOROTA Admin: 10/03/22 10:37 Dose: 81 mg Documented By: EP Co-signed By: KORY Atenolol (Atenolol 50 Mg Tablet) 50 mg PO DAILY KEELEY Stop: 11/02/22 08:59 Last Admin: 10/04/22 09:27 Dose: 50 mg Documented By: JESSICA Co-signed By: DOROTA Admin: 10/03/22 10:36 Dose: 50 mg Documented By: EP Co-signed By: KORY Atorvastatin Calcium (Atorvastatin 20 Mg Tab) 20 mg PO DAILY KEELEY Stop: 11/02/22 08:59 Last Admin: 10/04/22 09:28 Dose: 20 mg Documented By: AGT Co-signed By: DOROTA Admin: 10/03/22 10:36 Dose: 20 mg Documented By: EP Co-signed By: KORY Calcium Carbonate (Calcium Carbonate 1250mg Tab) 1,250 mg PO DAILY KEELEY Stop: 11/02/22 08:59 Last Admin: 10/04/22 09:29 Dose: 1,250 mg Documented By: AGT Co-signed By: DOROTA Admin: 10/03/22 10:36 Dose: 1,250 mg Documented By: EP Co-signed By: KORY Escitalopram Oxalate (Escitalopram Oxalate 20 Mg Tab) 20 mg PO DAILY KEELEY Stop: 11/02/22 08:59 Last Admin: 10/04/22 09:30 Dose: 20 mg Documented By: AGT Co-signed By: DOROTA Admin: 10/03/22 10:36 Dose: 20 mg Documented By: EP Co-signed By: KORY Furosemide (Furosemide 40 Mg/4 Ml Vial) 40 mg IV ONE ONE Stop: 10/02/22 11:10 Last Admin: 10/02/22 11:48 Dose: 40 mg Documented By: SYMONE Furosemide (Furosemide 40 Mg/4 Ml Vial) 40 mg IV NOW STA Stop: 10/03/22 14:01 Last Admin: 10/03/22 15:13 Dose: 40 mg Documented By: KORY Heparin Sodium (Porcine) (Heparin Sod 5,000 Unit/0.5 Ml Vial) 5,000 units SQ Q12 KEELEY Stop: 11/01/22 20:59 Last Admin: 10/04/22 09:31 Dose: 5,000 units Documented By: JESSICA Co-signed By: DOROTA Admin: 10/03/22 21:07 Dose: 5,000 units Documented By: Admin: 10/03/22 10:37 Dose: 5,000 units Documented By: KAYCEE Co-signed By: KORY Admin: 10/02/22 21:29 Dose: 5,000 units Documented By: DENISE Hydralazine HCl (Hydralazine Hcl 20 Mg/Ml Vial) 5 mg IV NOW ONE Stop: 10/02/22 11:15 Last Admin: 10/02/22 11:31 Dose: 5 mg Documented By: SYMONE Losartan Potassium (Losartan Potassium 25 Mg Tab) 25 mg PO BID [facility] Stop: 11/01/22 20:59 Last Admin: 10/04/22 09:32 Dose: 25 mg Documented By: JESSICA Co-signed By: DOROTA Admin: 10/03/22 21:07 Dose: 25 mg Documented By: Admin: 10/03/22 08:17 Dose: 25 mg Documented By: Admin: 10/02/22 21:29 Dose: 25 mg Documented By: DENISE Metformin HCl (Metformin Hcl 500 Mg Tab) 500 mg PO BIDM [facility] Stop: 11/01/22 16:59 Last Admin: 10/03/22 08:51 Dose: Not Given Documented By: Admin: 10/02/22 16:53 Dose: 500 mg Documented By: RAUL Metoprolol Tartrate (Metoprolol Tartrate 1 Mg/Ml Vial) 5 mg IV Q6 PRN PRN Reason: BP >180 systolic Stop: 11/01/22 17:59 Last Admin: 10/04/22 03:47 Dose: 5 mg Documented By: RICHMOND Miscellaneous (Vitamin B12 1,000 Mcg - Order Awaiting Action) 1 each N/A QS [facility] Stop: 11/02/22 00:00 Last Admin: 10/04/22 00:19 Dose: 1 each Documented By: Admin: 10/03/22 15:13 Dose: Not Given Documented By: Admin: 10/03/22 08:17 Dose: Not Given Documented By: Admin: 10/02/22 23:36 Dose: Not Given Documented By: DENISE Vitamin D (Cholecalciferol 1,000 Units 25 Mcg Tab) 2,000 units PO DAILY KEELEY Stop: 11/02/22 08:59 Last Admin: 10/04/22 09:30 Dose: 2,000 units Documented By: JESSICA Co-signed By: DOROTA Admin: 10/03/22 10:35 Dose: 2,000 units Documented By: EP Co-signed By: KORY Imaging Data Radiologist's Impression: Chest X-Ray 10/02/22 09:48 XR chest 1V portable HISTORY: Chest pain, nonspecific COMPARISON: None. FINDINGS: The cardiac silhouette is mildly enlarged. There are trace bilateral pleural effusions. There is diffuse interstitial/vascular thickening consistent with mild pulmonary edema. No focal lung consolidations identified. IMPRESSION: Cardiomegaly with mild interstitial pulmonary edema and trace bilateral pleural effusions. ACT 112: Negative or not required by law. Electronically signed by: Guero Peralta M.D. 10/02/2022 10:44 AM Gallbladder Ultrasound 10/02/22 12:04 ABDOMINAL ULTRASOUND, RIGHT UPPER QUADRANT HISTORY: elevated LFT. COMPARISON: Abdominal ultrasound 10/26/2009. FINDINGS: Pancreas: Obscured by overlying bowel gas. Liver: Unremarkable. The main portal vein is patent. Gallbladder: No gallbladder wall thickening. No gallstones. CBD: 3 mm. Right kidney: No hydronephrosis. IMPRESSION: 1. Normal liver and gallbladder. 2. The pancreas was obscured by overlying bowel gas. ACT 112: Negative or not required by law. Electronically signed by: Guero Peralta M.D. 10/02/2022 2:50 PM Discharge Plan Visit Data Chief Complaint: Referred by Doctor Stated Complaint: HIGH BP, CHEST PAINS ED Provider: Ruchi Luna Discharge Problem: Pulmonary edema, Chest pain, Transaminitis Patient Disposition: Admitted As Inpatient Discharge Instructions Interventions: ED Discharge Assessment Last Done: 10/02/22 16:03
[2022-10-02] MEDS ORDERED: POLYETHYLENE (MIRALAX) 17 GM PACK PO PRN (16:17)
[2022-10-02] MEDS ORDERED: NITROGLYCERIN SL 0.4 MG/TAB TAB SL PRN (16:17)
[2022-10-02] MEDS: metFORMIN HCL 500 MG TAB PO SCH (16:53)
[2022-10-02] MEDS: ACETAMINOPHEN 325 MG TAB PO PRN (16:53)
[2022-10-02] MEDS: LOSARTAN POTASSIUM 25 MG TAB PO SCH (21:29)
[2022-10-02] MEDS: HEPARIN SOD 5,000 UNIT/0.5 ML VIAL SQ SCH (21:29)
[2022-10-02 21:38] LABS: Estimated Average Glucose 126 mg/dl
[2022-10-03] MEDS: LOSARTAN POTASSIUM 25 MG TAB PO SCH ×2 (08:17→21:07)
[2022-10-03] MEDS: metFORMIN HCL 500 MG TAB PO SCH (08:51)
[2022-10-03] MEDS ORDERED: amLODIPine BESYLATE 5 MG TAB PO SCH (09:00)
[2022-10-03 09:39] LABS: Albumin Globulin Ratio 1.3 (0.9-2); Albumin Level 3.7 gm/dl (3.4-5.0); Bilirubin,Total 1.1 mg/dl (0.2-1.0); Calcium 9.2 mg/dl (8.5-10.1); Chol HDL Ratio 3.1 (0-5); Creatinine Clr Calc Pharmacy 106.5 ml/min; Est GFR (African American) 115.3 ml/min; Est GFR (Non-African American) 99.4 ml/min; Globulin 2.9 gm/dl (2.5-4.0); Potassium 3.4 mmol/L (3.5-5.1); Total Protein 6.6 gm/dl (6.0-8.3)
[2022-10-03 09:45] LABS: Troponin I High Sensitivity 12.8 pg/ml (0-14)
[2022-10-03 09:48] LABS: Basophils # (auto) 0.04 K/uL (0-0.2); Basophils % (auto) 0.8 %; Eosinophils # (auto) 0.18 K/uL (0-0.50); Eosinophils % (auto) 3.6 %; Hematocrit (blood only) 34.8 % (37.0-47.0); Hemoglobin 11.9 g/dl (12.0-16.0); Lymphocytes # (auto) 1.32 K/uL (1.2-3.4); Lymphocytes % (auto) 26.2 %; Mean Corpuscular Hemoglobin 29.2 pg (25.0-34.0); Mean Corpuscular Hgb Conc 34.2 g/dL (32.0-36.0); Mean Corpuscular Volume 85.5 fL (80.0-100.0); Mean Platelet Volume 9.3 fL (9.4-12.4); Monocytes # (auto) 0.47 K/uL (0.11-0.59); Monocytes % (auto) 9.3 %; Neutrophils # (auto) 3.03 K/uL (1.40-6.50); Neutrophils % (auto) 60.1 %; Platelet Count 273 K/uL (130-400); RDW Coefficient of Variation 12.9 % (11.5-14.5); RDW Standard Deviation 40.2 fL (36.4-46.3); Red Blood Count 4.07 M/uL (4.20-5.40); White Blood Count 5.04 K/ul (4.8-10.8)
--- NOTE | 2022-10-03 10:13 | Electrocardiogram Report ---
Test Reason : Blood Pressure : / mmHG Vent. Rate : 055 BPM Atrial Rate : 055 BPM P-R Int : 124 ms QRS Dur : 088 ms QT Int : 496 ms P-R-T Axes : 051 042 049 degrees QTc Int : 474 ms Sinus bradycardia Otherwise normal ECG When compared with ECG of 02-OCT-2022 09:59, QT has lengthened Confirmed by Jose Manuel Juárez ([id number]) on 10/03/2022 10:12:59 AM Referred By: Meño Lawson Confirmed By:Antonio Juárez
[2022-10-03] MEDS: CHOLECALCIFEROL 1,000 UNITS 25 MCG TAB PO SCH (10:35)
[2022-10-03] MEDS: ATORVASTATIN 20 MG TAB PO SCH (10:36)
[2022-10-03] MEDS: ATENOLOL 50 MG TABLET PO SCH (10:36)
[2022-10-03] MEDS: CALCIUM CARBONATE 1250MG TAB PO SCH (10:36)
[2022-10-03] MEDS: ESCITALOPRAM OXALATE 20 MG TAB PO SCH (10:36)
[2022-10-03] MEDS: ASPIRIN 81 MG ECTAB PO SCH (10:37)
[2022-10-03] MEDS: HEPARIN SOD 5,000 UNIT/0.5 ML VIAL SQ SCH ×2 (10:37→21:07)
--- NOTE | 2022-10-03 10:50 | XCELERA ---
[id number]
[2022-10-03] MEDS: ACETAMINOPHEN 325 MG TAB PO PRN (13:03)
[2022-10-03] MEDS ORDERED: FUROSEMIDE 40 MG/4 ML VIAL IV STA (14:00)
--- NOTE | 2022-10-03 14:06 | Hospitalist Progress Note ---
Date of Service October 03, 2022 Assessment & Plan (1) Hypertensive emergency: Plan: Improved. Amlodipine was started this admission and uptitrated today to 10 mg dosing. Continue to treat underlying diastolic CHF. (2) Chest pain: Plan: Negative treadmill stress test today, October 03. No evidence of acute coronary syndrome. (3) Shortness of breath: Plan: Present on admission. Resolving with treatment of underlying CHF. (4) Pulmonary edema: Plan: Due to acute diastolic congestive heart failure. Improving with Lasix diuresis and blood pressure control. Repeat chest x-ray tomorrow, October 04 (5) Transaminitis: Plan: Mild. Probably due to passive hepatic congestion. Treat CHF. We will follow. (6) Hyperlipidemia: Plan: Treated with atorvastatin 20 mg daily. (7) Prediabetes: Plan: A1c 5.9% in March 2022. Patient takes metformin 500mg BID. (8) Depression: Plan: Continue home Lexapro. Stable Plan Probable discharge to home tomorrowOctober 04 Admission and Anticipated Discharge Date Admission Date: October 02, 2022 Subjective Alert and oriented. Cardiac stress test was negative for ischemia todayOctober 31. Amlodipine dosage uptitrated. We will administer 1 more dose of intravenous Lasix today. Repeat chest x-ray in the morning. She is on room air and probably can go home tomorrow, October 04 Review of Systems Review of Systems: Constitutional-no fever or chills ENT-no blurred vision, no double vision, no epistaxis, no sore throat Respiratory-no cough, no wheezing, no shortness of breath Cardiac-no palpitations, no chest pain, no syncope GI-no nausea, vomiting, diarrhea, melena, hematochezia -no urinary retention, no urinary incontinence, no dysuria, no hematuria Musculoskeletal-no joint pain, no muscle tenderness Skin-no bruising, no rashes, no pruritus Neuro-no isolated weakness, no paresthesia, no weakness Psych-no depression, no anxiety Physical Exam Physical Exam: General-alert and oriented x3, no fevers, no chills HEENT-head atraumatic and normocephalic Chest-faint bibasilar inspiratory rales. No wheezing. No dullness. Cardiac-regular rate and rhythm, normal S1 and S2 Abdomen-normal bowel sounds, nontender, no hepatosplenomegaly Extremities-no cyanosis, clubbing, or edema Neuro-cranial nerves II through XII intact, motor and sensory function within normal limits, strength symmetrical , no focal deficits Psych-normal affect, normal mood Results & Data Results & Data ([facility]) Vital Signs (Past 12 Hours) Vital Signs Temp Pulse Pulse Resp BP Pulse Ox O2 Del Method 10/03/22 13:02 63 168/79 H 10/03/22 11:52 61 10/03/22 11:46 36.9 C 61 17 185/87 H 95 Room Air 10/03/22 07:31 36.6 C 71 18 182/96 H 95 Room Air 10/03/22 02:29 36.6 C 69 18 171/93 H 92 Room Air Laboratory Results 10/03/22 06:09 10/03/22 06:09 PG Care Time/CCT Total # of Minutes Spent Total Time Spent with Patient: Total time spent is greater than 50% in coordination of care (as documented) at patient's floor/unit and/or counseling patient: Coding Level of Care Code 70883 SUB INP/OBS CARE 3/50MIN Diagnoses Hypertensive emergency I16.1 Chest pain R07.9 Shortness of breath R06.02 Pulmonary edema J81.1 Transaminitis R74.01 Hyperlipidemia E78.5 Prediabetes R73.03 Depression F32.9
[2022-10-04] MEDS ORDERED: amLODIPine BESYLATE 5 MG TAB PO SCH (09:00)
[2022-10-04] MEDS: ASPIRIN 81 MG ECTAB PO SCH (09:26)
[2022-10-04] MEDS: ATENOLOL 50 MG TABLET PO SCH (09:27)
[2022-10-04] MEDS: ATORVASTATIN 20 MG TAB PO SCH (09:28)
[2022-10-04] MEDS: CALCIUM CARBONATE 1250MG TAB PO SCH (09:29)
--- NOTE | 2022-10-04 09:29 | XRay Report ---
XR chest 1V portable HISTORY: Shortness of breath. Congestive heart failure. COMPARISON: Chest 10/02/2022. FINDINGS: No pneumothorax. No pleural effusions. The cardiac silhouette is borderline enlarged. This has improved. The pulmonary edema has resolved. No new focal lung consolidations to suggest a pneumon ia. IMPRESSION: Interval resolution of the pulmonary edema. ACT 112: Negative or not required by law. Electronically signed by: Guero Peralta M.D. 10/04/2022 9:28 AM
[2022-10-04] MEDS: ESCITALOPRAM OXALATE 20 MG TAB PO SCH (09:30)
[2022-10-04] MEDS: CHOLECALCIFEROL 1,000 UNITS 25 MCG TAB PO SCH (09:30)
[2022-10-04] MEDS: HEPARIN SOD 5,000 UNIT/0.5 ML VIAL SQ SCH (09:31)
[2022-10-04] MEDS: LOSARTAN POTASSIUM 25 MG TAB PO SCH (09:32)
--- NOTE | 2022-10-04 10:05 | Discharge Summary ---
Date of Service October 04, 2022 Admission HPI Per Admitting Provider 67-year-old female past medical history significant for hypertension, hyperlipidemia, depression, prediabetes presented to the ER via personal vehicle at the urging of her primary care provider after her wellness visit today. During that visit she endorsed exertional chest heaviness and associated shortness of breath (example that she gives was when she went to [place] over the weekend walking up the steps made her very winded and with a bit of a pressure sensation over her chest, improved upon sitting at [employer] and did not have for the rest of the day), though she does endorse that symptoms are sometimes pre sent at rest, though not as severe. She also endorses a severe headache for the last week, which she thought was due to needing new glasses. She denies recent fevers, nausea, lightheadedness. She does not endorse any abdominal pain, and denies any improvement or worsening of the pressure/pain sensation with eating. In the ER patient was noted to have a hemoglobin of 10.9, normal WBC count, nor mal BMP, elevated LFTs and T. bili compared to lab work on 09/27/2022, and elevated troponin to 23.1. COVID-19 negative. Chest x-ray with some evidence of mild interstitial pulmonary edema and trace bilateral pleural effusions. EKG with T wave inversions in leads V1 and V2, otherwise no ST or T wave changes. Patient was given hydralazine 5 mg IV and furosemide 40 mg IV, and gallbladder ultrasound was ordered. Hospitalist service was consulted for possible unstable angina, hypertensive urgency, and further evaluation of transaminitis. Principal Diagnosis Hypertensive emergency, acute diastolic CHF Discharge Exam General-alert and oriented x3, no fevers, no chills HEENT-head atraumatic and normocephalic Chest-clear to auscultation and percussion. No wheezing. No dullness. Cardiac-regular rate and rhythm, normal S1 and S2 Abdomen-normal bowel sounds, nontender, no hepatosplenomegaly Extremities-no cyanosis, clubbing, or edema Neuro-cranial nerves II through XII intact, motor and sensory function within normal limits, strength symmetrical , no focal deficits Psych-normal affect, normal mood Discharge Data Allergies Allergy/AdvReac Type Severity Reaction Status Date / Time pravastatin Allergy Intermediate RASH Verified 10/02/22 08:43 Consultations 10/02/22 13:36 ED Decision to Admit Stat Ordered Studies 10/02/22 12:04 US gallbladder Stat Hospital Course (1) Hypertensive emergency: Improved. Amlodipine was started this admission and uptitrated on October 03 to 10 mg dosing. Continue to treat underlying diastolic CHF. (2) Chest pain: Negative treadmill stress test on October 03. No evidence of acute coronary syndrome. (3) Shortness of breath: Present on admission. Resolved with treatment of underlying CHF. (4) Pulmonary edema: Due to acute diastolic congestive heart failure. Resolved with Lasix diuresis and blood pressure control. Repeat chest x-ray today , October 04 , is clear (5) Transaminitis: Mild. Probably due to passive hepatic congestion. Treat CHF. We will follow. (6) Hyperlipidemia: Treated with atorvastatin 20 mg daily. (7) Prediabetes: A1c 5.9% in March 2022. Patient takes metformin 500mg BID. (8) Depression: Continue home Lexapro. Stable Plan Home today, October 04 , on amlodipine Total Time Total Time Spent Total Time Spent (In Minutes): 35 minutes Discharge Plan Discharge Items Patient Disposition: Home - Self-Care Reason For Visit: UNSTABLE ANGINA, HYPERTENSIVE BUCK, TRANSAMINITIS Discharge Diagnosis: Hypertensive emergency, acute diastolic CHF Activity: Resume your previous activity Non-emergency contact: Primary Care Provider Call non-emergency contact if: you have any medication questions Follow-up/Referrals: Meño Lawson III, CRNP [Primary Care Provider] - Diet: Carb Consistent or DM2 and Heart Healthy Addtl Attending Provider Instructions: Amlodipine once daily is new. Keep salt intake low. Monitor blood pressure several times daily and take records to your PCP at the next appointment Pending Studies at Discharge: No Stand-Alone Forms: My [facility], Smoking Cessation Medications and DC Order Prescriptions: New amlodipine 10 mg tablet 10 mg PO DAILY Qty: 30 0RF Continued atorvastatin 20 mg tablet 20 mg PO DAILY Qty: 90 1RF losartan 25 mg tablet 25 mg PO BID Qty: 180 1RF atenolol 50 mg tablet 50 mg PO DAILY Qty: 90 3RF escitalopram oxalate 20 mg tablet 20 mg PO DAILY Qty: 90 3RF metformin 500 mg tablet 500 mg PO BID Qty: 180 1RF cholecalciferol (vitamin D3) 50 mcg (2,000 unit) tablet 50 mcg PO DAILY calcium carbonate 600 mg calcium (1,500 mg) tablet 600 mg PO DAILY mecobalamin (vitamin B12) 1,000 mcg tablet,chewable 1,000 mcg PO DIRECTED clotrimazole-betamethasone 1-0.05 % cream 1 applic topical BID PRN (Reason: Skin Irritation) Rx Instructions: Apply to areas of rash at the waistline and the right groin. aspirin [Adult Low Dose Aspirin] 81 mg tablet,delayed release (DR/EC) 81 mg PO DAILY Discharge Orders: Discharge Order- CHF (Routine); Ordered 10/04/22 Ordered By: Alessandro Ford/Other Patient Handouts: Prediabetes, 5 Steps for Eating Healthier Admission Data Admit Date/Time: 10/02/22 14:05 Attending Provider: Alessandro Rodriguez Admit Provider: Annalee Lemon Primary Care Provider: Meño Lawson III Other Providers: Annalee Lemon Coding Level of Care Code HOSP INP/OBS DISCH >30 MIN Diagnoses Hypertensive emergency I16.1 Chest pain R07.9 Shortness of breath R06.02 Pulmonary edema J81.1 Transaminitis R74.01 Hyperlipidemia E78.5 Prediabetes R73.03 Depression F32.9
== END 2022-10-04 12:07 | disposition home or self-care (01) | DRG 291 ==
LOC: ED 09:40 → 2E 14:05 → SUATTDRO 14:05 → 2E 16:03